=== PATIENT | male | born 1965 | race Caucasian/White ===

== ENCOUNTER 2017-08-03 06:21 | Day surgery (SDC) | payer BC ==
[2017-08-02 14:46] VITALS: BMI 24.5
[2017-08-03] MEDS ORDERED: fentaNYL CITRATE 250 MCG/5 ML VIAL ONE (07:37)
[2017-08-03] MEDS ORDERED: PROPOFOL 20 ML ONE (07:37)
[2017-08-03] MEDS ORDERED: ROCURONIUM BROMIDE 50 MG/5 ML VIAL ONE ×2 (07:37→09:33)
[2017-08-03] MEDS ORDERED: MIDAZOLAM HCL 2 MG/2 ML SINGLE DOSE VIAL ONE (07:37)
[2017-08-03] MEDS ORDERED: LIDOCAINE HCL/PF 2% SDV 5ML VIAL ONE (07:37)
[2017-08-03] MEDS ORDERED: DEXAMETHASONE SOD PHOSPHATE 4 MG/1 ML VIAL ONE (07:37)
[2017-08-03] MEDS ORDERED: DESFLURANE GAS 240 ML BOTTLE IH ONE (07:44)
--- NOTE | 2017-08-03 08:11 | HP ---
[facility]ellite [facility] - Chief Complaint Chief Complaint: Left inguinal hernia/bulge History Source: Patient Limitations to Obtaining History: No Limitations - Past Medical History Allergies/Adverse Reactions: Allergies Allergy/AdvReac Type Severity Reaction Status Date / Time Penicillins Allergy Severe STOP Verified 08/03/17 07:42 BREATHING Gastrointestinal: Yes: Crohn's Disease - Current Medications Current Medications: Home Medications Medication Instructions Recorded Humira 1 ea SQ UTDICT 06/22/11 Valsartan [Diovan] 80 mg PO DAILY 06/22/11 Pnv/Iron,Carb/Om-3/FA/Fat 1 1 each PO DAILY 11/03/13 [Multivitamin with Minerals Cap] Salmeterol/Fluticasone [Advair 1 inh PO BID 11/03/13 100Mcg/50Mcg -] Mesalamine [Pentasa] 1,500 mg PO BID 11/06/13 Montelukast Sodium [Singulair] 10 mg PO DAILY 08/02/17 Satellite Physical Exam - Physical Examination Vital Signs: Vital Signs Period Temp Pulse Resp BP Sys/Hernandez Pulse Ox Last 24 Hr 98.2 F-98.2 F 60-60 20-20 124-124/71-71 96 General Appearance: Well Nourished Lung: Clear to auscultation Heart: Regular rate & rhythm Abdomen: Soft, Other (Left inguinal hernia + Midline scar from exploratory laparotomy) Neurological: Alert, Oriented Satellite Impression/Plan - Impression/Plan Impression: Left inguinal hernia Operative Procedure: Robotic possible open left inguinal hernia repair with mesh , possible bilateral Date to be Performed: 08/03/17
[2017-08-03] MEDS ORDERED: CLINDAMYCIN PHOSPHATE 600 MG/4 ML VIAL IVPB ONE (09:00)
[2017-08-03] MEDS ORDERED: CLINDAMYCIN PHOSPHATE 600 MG/4 ML VIAL ONE (09:03)
[2017-08-03] MEDS ORDERED: GLYCOPYRROLATE 0.2 MG/1 ML VIAL ONE (10:32)
[2017-08-03] MEDS ORDERED: NEOSTIGMINE METHYLSULFATE 0.5 MG/ML - 10 ML MDV ONE (10:32)
[2017-08-03] MEDS ORDERED: BUPIVACAINE HCL/PF 0.5% (5MG/ML) 10 ML VIAL ONE (10:34)
[2017-08-03] MEDS ORDERED: KETOROLAC TROMETHAMINE 30 MG/1 ML VIAL ONE (10:38)
[2017-08-03] MEDS ORDERED: BUPIVACAINE HCL/PF 0.5% (5MG/ML) 10 ML VIAL IJ ONE (10:38)
--- NOTE | 2017-08-03 11:01 | OP ---
Operative Note - Note: Operative Date: 08/03/17 Pre-Operative Diagnosis: Left inguinal hernia Operation: Laparoscopic lysis of adhesions. Robotic left inguinal hernia repiar with mesh Post-Operative Diagnosis: Other (Left inguinal hernia, intraabdominal adhesions) Surgeon: Jim Lorenz Anvilsmith: Melissa South Anesthesia: General Estimated Blood Loss (mls): 10 Operative Report Dictated: Yes
[2017-08-03] MEDS ORDERED: oxyCODONE HCL 5 MG TABLET PO PRN (11:20)
[2017-08-03] MEDS ORDERED: ONDANSETRON 4 MG/2 ML VIAL IVPUSH PRN (11:20)
--- NOTE | 2017-08-03 11:28 | SPEC ---
DATE OF OPERATION: 08/03/2017 SURGEON: Philip Lorenz MD ABATTOIR SUPERVISOR: SHANTEL Hernandez PREOPERATIVE DIAGNOSIS: Left inguinal hernia. POSTOPERATIVE DIAGNOSES: 1. Left inguinal hernia. 2. Intraabdominal adhesions. PROCEDURE: 1. Laparoscopic lysis of adhesions. 2. Robotic left inguinal hernia repair with mesh. SPECIMEN: None. ESTIMATED BLOOD LOSS: 10 mL DRAINS: None. ANESTHESIA: GET. REASON FOR PROCEDURE: This is a 52-year-old gentleman who presented to the office for a left inguinal hernia noted on exam. Because of this, he was consented for robotic, possible open left inguinal hernia repair with mesh, possible open, possible bilateral. RISKS AND BENEFITS: The risks and benefits of a Robotic, possible open left inguinal hernia repair, possible bilateral inguinal hernia repair with mesh were explained. These included bleeding, infection, recurrence of hernia, NE, DVT, PE, new hernia, mesh infection, injury to surrounding structures, including the colon, bowel, bladder, ureter, spermatic cord, spermatic vessels, vas deferens, vessel injury, nerve injury, testicular injury, including testicular atrophy and possible testicular loss, and as some of the possible complications. The patient understood and signed informed consent. DESCRIPTION OF PROCEDURE: The patient was placed supine on the operating table. The patient underwent general endotracheal intubation. A Holm catheter was inserted. The arms were tucked at the side and he was placed on a beanbag device. The abdomen was prepped and draped in the usual sterile fashion. A time-out was performed. A periumbilical incision was made and entrance into the abdominal cavity was obtained using an 8-mm robotic optical trocar under direct visualization with the laparoscope. Pneumoperitoneum was established. Subsequently, 2 additional 8-mm trocars were placed, one approximately 6 to 7 cm to the left of the umbilicus and one 6 to 7 cm to the right of the umbilicus. The patient was placed in steep Trendelenburg [id number] position. The robot was brought over the field and docked. Dissection was performed at the console. The peritoneum was opened using robotic Endo Bakari. The preperitoneal space over the left inguinal region was dissected. The epigastric vessels were identified and dissected toward the anterior abdominal wall. Dissection in the preperitoneal space was continued from the medial umbilical ligament towards the anterior-superior iliac spine. Medially, dissection was performed until Delvis's ligament and the pubis were identified. Lateral to this, the spermatic cord structures, including the vas deferens, were identified. The contents of the hernia sac were identified and dissected down to the retroperitoneum. At this point, hemostasis was identified. Again, all of the hernia content was noted to be completely dissected and noted to have no retraction back to its original position. A Symbotex mesh was then chosen, irrigated and inserted into the abdominal cavity to cover the entire myopectineal orifice. The mesh was secured medially at the pubis and superolaterally to the abdominal wall with sutures. The mesh was noted to be in good position. The hernia was again noted to be fully reduced and without any tension. At this point, the peritoneal flap was closed using a 2-0 V-Loc suture. Again, hemostasis was identified. All needles were removed from the field and the count was confirmed to be correct. The robotic instruments were removed. The robot was undocked and removed from the operative field. The patient was placed supine. Pneumoperitoneum was desufflated. All trocars were removed. All incision sites were irrigated and Marcaine was injected in all incision sites. Hemostasis was noted at all incision sites. All incision sites were closed using 4-0 Biosyn. Sterile dressings were applied. The Holm catheter was removed. The patient tolerated the procedure well and was transferred to the recovery room in stable condition. Of note, at the beginning of the case, because of his previous midline incision and exploratory laparotomy, a 5-mm incision was made in the left upper quadrant below the subcostal region. A Veress needle was inserted; pneumoperitoneum was established. Entrance to the abdomen was obtained using 5-mm optical trocar under direct visualization. Adhesions were noted throughout the abdominal cavity, and carefully, these were taken down with sharp dissection using scissors. After all adhesions were dissected, the robotic trocars were placed, and the left inguinal hernia repair was begun. The patient tolerated this procedure well, was transferred to recovery room in stable condition. PHILIP LORENZ M.D. [id number]
[2017-08-03] MEDS ORDERED: LACTATED RINGERS SOLUTION 1,000 ML IV SCH (11:30)
[2017-08-03 13:07] VITALS: BP 116/63; PULSE 70
[2017-08-03 18:54] VITALS: TEMP 98
--- NOTE | 2017-08-04 07:43 | SURG ---
Surgery Vice President Planning Note Vice President Planning: Melissa South PA-C Date of Service: 08/04/17 Diagnosis: Left inguinal hernia Procedure: Laparoscopic lysis of adhesions. Robotic left inguinal hernia repiar with mesh I was present for the entirety of the operative procedure. For further detail, please refer to operative report. Visit type - Case Type Case Type: Scheduled Admission - Emergency Emergency Visit: No - New patient This patient is new to me today: No
== END 2017-08-03 13:00 | disposition home or self-care (01) ==
LOC: JASU-SURG 06:21
PROVIDERS: ATTEND Surgery
PROC: 8E0W4CZ Robotic Assisted Procedure of Trunk Region, Percutaneous Endoscopic Approach (ICD-10-PCS; 2017-08-03)
PROC: 0YU64JZ Supplement Left Inguinal Region with Synthetic Substitute, Percutaneous Endoscopic Approach (ICD-10-PCS; principal; 2017-08-03 08:00)
DX: K40.90 Unilateral inguinal hernia, without obstruction or gangrene, not specified as recurrent (principal)
CPT/HCPCS: 49650; S2900; 86850; 86900; 86901

== ENCOUNTER 2020-04-22 15:06 | Inpatient (IN) | payer BC ==
[2020-04-22] MEDS ORDERED: MEROPENEM 500 MG in DEXTROSE 5%-WATER 100 ML IVPB ONE (16:13)
[2020-04-22] MEDS ORDERED: ACETAMINOPHEN 325 MG TABLET (FP) PO PRN (16:45)
[2020-04-22] MEDS ORDERED: MEROPENEM 500 MG VIAL (RESTRICTED TO ID) IVPB ONE (16:47)
[2020-04-22 16:55] LABS: BASO % 0.6 % (0-2.0); EOS % 1.8 % (0-4.5); HEMATOCRIT 41.4 % (35.4-49); HEMOGLOBIN 13.8 GM/dL (11.7-16.9); LYMPH % 14.6 % (8-40); MCHC 33.3 g/dl (32.0-35.9); MEAN PLT VOLUME 8.3 fl (7.5-11.1); MONO % 12.4 % (3.8-10.2); NEUT % 70.6 % (42.8-82.8); PLATELET COUNT 238 K/MM3 (134-434); RBC 4.76 M/mm3 (4.00-5.60); RDW 13.5 % (11.9-15.9); WHITE BLOOD COUNT 9.5 K/mm3 (4.0-10.0)
[2020-04-22 17:10] LABS: POTASSIUM 4.4 mmol/L (3.5-5.1)
[2020-04-22 17:13] LABS: ALBUMIN 3.2 g/dl (3.4-5.0); BLOOD UREA NITROGEN 21.5 mg/dL (7-18)
[2020-04-22 17:18] LABS: BILIRUBIN,TOTAL 0.6 mg/dL (0.2-1); TOT PROT 8.4 g/dl (6.4-8.2)
[2020-04-22 17:45] LABS: ERYTHROCYTE SEDIMENTATION RATE 54 mm/hr (0-20)
[2020-04-22 21:19] VITALS: BMI 35.0
[2020-04-22] MEDS ORDERED: MESALAMINE 500 MG PO SCH (22:00)
[2020-04-22] MEDS ORDERED: FLU VACCINE (FLULAVAL) PF 60 MCG/0.5 ML SYRINGE 2020-2021 IM ONE (22:00)
[2020-04-22] MEDS: MONTELUKAST NA 10 MG TABLET PO SCH (22:27)
[2020-04-23] MEDS ORDERED: MEROPENEM 1 GM in DEXTROSE 5%-WATER 100 ML IVPB ONE (01:30)
[2020-04-23] MEDS ORDERED: DEXTROSE 5%-WATER 100 ML IVPB ONE ×3 (01:33→17:15)
[2020-04-23] MEDS ORDERED: MEROPENEM 1 GM VIAL (RESTRICTED TO ID) IVPB ONE ×3 (01:33→17:15)
[2020-04-23] MEDS: MEROPENEM 1 GM in DEXTROSE 5%-WATER 100 ML IVPB SCH ×3 (01:40→17:19)
[2020-04-23] MEDS: ENOXAPARIN NA (PORCINE) 40 MG/0.4 ML DISP.SYRIN SQ SCH (09:13)
[2020-04-23] MEDS: HYDROCHLOROTHIAZIDE 25 MG TABLET (FP) PO SCH (09:14)
[2020-04-23] MEDS: VALSARTAN 80 MG TABLET PO SCH (09:14)
[2020-04-23] MEDS ORDERED: PT OWN MED DRAWER 7, Y5N ONE ×3 (13:43→21:13)
[2020-04-23] MEDS: MESALAMINE 800 MG TABLET.DR PO SCH ×2 (14:00→21:26)
[2020-04-23] MEDS: MONTELUKAST NA 10 MG TABLET PO SCH (21:25)
[2020-04-24] MEDS ORDERED: MEROPENEM 1 GM VIAL (RESTRICTED TO ID) IVPB ONE ×3 (01:17→16:02)
[2020-04-24] MEDS ORDERED: DEXTROSE 5%-WATER 100 ML IVPB ONE ×3 (01:17→16:02)
[2020-04-24] MEDS: MEROPENEM 1 GM in DEXTROSE 5%-WATER 100 ML IVPB SCH ×3 (01:20→17:03)
[2020-04-24] MEDS: MESALAMINE 800 MG TABLET.DR PO SCH ×3 (05:52→21:00)
[2020-04-24] MEDS: HYDROCHLOROTHIAZIDE 25 MG TABLET (FP) PO SCH (09:19)
[2020-04-24] MEDS: VALSARTAN 80 MG TABLET PO SCH (09:19)
[2020-04-24] MEDS: ENOXAPARIN NA (PORCINE) 40 MG/0.4 ML DISP.SYRIN SQ SCH (09:19)
[2020-04-24 09:50] LABS: BASO % 0.6 % (0-2.0); EOS % 4.4 % (0-4.5); HEMATOCRIT 40.5 % (35.4-49); HEMOGLOBIN 13.2 GM/dL (11.7-16.9); LYMPH % 34.9 % (8-40); MCH 28.5 pg (25.7-33.7); MCHC 32.7 g/dl (32.0-35.9); MEAN CELL VOLUME 87.2 fl (80-96); MEAN PLT VOLUME 8.2 fl (7.5-11.1); MONO % 12.5 % (3.8-10.2); NEUT % 47.6 % (42.8-82.8); PLATELET COUNT 258 K/MM3 (134-434); RBC 4.64 M/mm3 (4.00-5.60); RDW 13.9 % (11.9-15.9); WHITE BLOOD COUNT 4.7 K/mm3 (4.0-10.0)
[2020-04-24 10:11] LABS: POTASSIUM 4.2 mmol/L (3.5-5.1)
[2020-04-24 10:44] LABS: CALCIUM 9.1 mg/dL (8.5-10.1)
[2020-04-24 10:45] LABS: ALBUMIN 3.1 g/dl (3.4-5.0); BLOOD UREA NITROGEN 16.8 mg/dL (7-18)
[2020-04-24 10:48] LABS: CREATININE 0.7 mg/dL (0.55-1.3)
[2020-04-24 10:50] LABS: TOT PROT 8.2 g/dl (6.4-8.2)
[2020-04-24 10:51] LABS: BILIRUBIN,TOTAL 0.9 mg/dL (0.2-1)
[2020-04-24] MEDS ORDERED: PT OWN MED DRAWER 7, Y5N ONE ×2 (16:02→20:52)
[2020-04-24] MEDS: MONTELUKAST NA 10 MG TABLET PO SCH (21:00)
[2020-04-25] MEDS ORDERED: MEROPENEM 1 GM VIAL (RESTRICTED TO ID) IVPB ONE ×3 (01:24→17:31)
[2020-04-25] MEDS ORDERED: DEXTROSE 5%-WATER 100 ML IVPB ONE ×3 (01:24→17:31)
[2020-04-25] MEDS: MEROPENEM 1 GM in DEXTROSE 5%-WATER 100 ML IVPB SCH ×3 (01:34→17:37)
[2020-04-25] MEDS ORDERED: PT OWN MED DRAWER 7, Y5N ONE (05:48)
[2020-04-25] MEDS: MESALAMINE 800 MG TABLET.DR PO SCH ×3 (05:55→21:25)
[2020-04-25] MEDS: ENOXAPARIN NA (PORCINE) 40 MG/0.4 ML DISP.SYRIN SQ SCH (10:22)
[2020-04-25] MEDS: VALSARTAN 80 MG TABLET PO SCH (10:22)
[2020-04-25] MEDS: HYDROCHLOROTHIAZIDE 25 MG TABLET (FP) PO SCH (10:22)
[2020-04-25] MEDS: MONTELUKAST NA 10 MG TABLET PO SCH (21:25)
[2020-04-26] MEDS ORDERED: MEROPENEM 1 GM VIAL (RESTRICTED TO ID) IVPB ONE ×3 (00:11→17:17)
[2020-04-26] MEDS ORDERED: DEXTROSE 5%-WATER 100 ML IVPB ONE ×3 (00:11→17:17)
[2020-04-26] MEDS: MEROPENEM 1 GM in DEXTROSE 5%-WATER 100 ML IVPB SCH ×3 (02:11→17:22)
[2020-04-26] MEDS: MESALAMINE 800 MG TABLET.DR PO SCH ×2 (05:38→13:24)
[2020-04-26] MEDS: HYDROCHLOROTHIAZIDE 25 MG TABLET (FP) PO SCH (10:19)
[2020-04-26] MEDS: VALSARTAN 80 MG TABLET PO SCH (10:19)
[2020-04-26] MEDS: ENOXAPARIN NA (PORCINE) 40 MG/0.4 ML DISP.SYRIN SQ SCH (10:19)
[2020-04-26 15:21] VITALS: PULSE 71; TEMP 98.2
[2020-04-26 17:32] VITALS: BP 117/71
== END 2020-04-26 18:18 | disposition home or self-care (01) | DRG 603 ==
LOC: JER 15:06 → JERBED 17:10 → J8W 20:47
PROVIDERS: ADMIT Internal Medicine; ATTEND Internal Medicine
DX: L03.115 Cellulitis of right lower limb (principal); K50.90 Crohn's disease, unspecified, without complications; I10 Essential (primary) hypertension; E66.9 Obesity, unspecified; Z68.35 Body mass index [BMI] 35.0-35.9, adult; Z88.0 Allergy status to penicillin
CPT/HCPCS: 36415; 80053; 85025; 85651; 86140; 87040; 93005; 93010; 93970-TC; 99285-25; C9803; G0463-25; U0003

== ENCOUNTER 2020-11-01 00:25 | Emergency (ER) | payer BC ==
[2020-11-01 00:36] VITALS: BP 135/92; PULSE 89; TEMP 98.6; BMI 35.0
[2020-11-01] MEDS ORDERED: DALBAVANCIN HCL 1,500 MG in DEXTROSE 5%-WATER - 500 ML IVPB ONE (00:39)
== END 2020-11-01 02:00 | disposition home or self-care (01) ==
LOC: FER 00:25
DX: L03.115 Cellulitis of right lower limb (principal)
CPT/HCPCS: 99284-25; J0875

== ENCOUNTER 2021-02-10 05:01 | Day surgery (SDC) | payer BC ==
[2021-02-07 16:34] VITALS: BMI 33.5
[2021-02-10 17:02] VITALS: BP 130/70; PULSE 58; TEMP 97.6
== END 2021-02-10 10:30 | disposition home or self-care (01) ==
LOC: JRADIR 05:01
PROVIDERS: ATTEND Internal Medicine Gastroenterology
PROC: 0FB13ZX Excision of Right Lobe Liver, Percutaneous Approach, Diagnostic (ICD-10-PCS; principal; 2021-02-10)
DX: K76.0 Fatty (change of) liver, not elsewhere classified (principal)
CPT/HCPCS: 47000; 76942-TC; 87899